=== PATIENT | male | born 1970 | race Two or more races ===

== ENCOUNTER 2024-05-25 04:41 | Emergency (ER) | payer OTHER ==
[~2024-05-25] VITALS: Ht 172.7 cm; Wt 105.0 kg
[2024-05-25 04:54] VITALS: BP 137/79; PULSE 66; RESP 16; TEMP 98.7; O2SAT 99
[2024-05-25 05:48] LABS: BASOPHILS % (AUTO) 0.7 % (0.0-2.0); EOSINOPHILS % (AUTO) 1.9 % (1.0-6.0); HEMATOCRIT 44.8 % (41-53); HEMOGLOBIN 15.6 g/dL (13.5-17.5); LYMPHOCYTES # (AUTO) 1.1 K/uL (1.0-4.8); LYMPHOCYTES % (AUTO) 14.4 % (22.0-44.0); MEAN CORPUSCULAR HGB CONC 34.7 G/dL (31.0-37.0); MEAN CORPUSCULAR VOLUME 92 fL (80-100); MONOCYTES % (AUTO) 13.5 % (2.0-9.0); NEUTROPHILS # (AUTO) 5.1 K/uL (1.8-7.7); NEUTROPHILS % (AUTO) 69.5 % (40.0-70.0); PLATELET COUNT (AUTO) 221 K/uL (150-450); RED BLOOD CELL COUNT(AUTO) 4.87 MIL/uL (4.50-5.90); RED CELL DISTRIBUTION WIDTH 12.6 % (11.5-14.5); WHITE BLOOD COUNT (AUTO) 7.4 K/uL (4.5-11.0)
[2024-05-25 05:54] LABS: COVID AG,FIA SOURCE NASAL SWAB
[2024-05-25 06:01] LABS: ANION GAP 2 mmol/L (8-16); CALCIUM, TOTAL 8.7 mg/dL (8.8-10.5); CARBON DIOXIDE 32 mmol/L (22-29); CHLORIDE 105 mmol/L (98-107); CREATININE 0.94 mg/dL (0.60-1.30); GLOMERULAR FILTR. RATE CALC > 60 mL/min (>60); GLUCOSE,RANDOM 100 mg/dL (70-110); POTASSIUM 4.8 mmol/L (3.5-5.1); SODIUM SERUM 139 mmol/L (136-145); UREA NITROGEN, BLOOD 20 mg/dL (7-18)
[2024-05-25 06:19] LABS: INFLUENZA TYPE A NEGATIVE FOR TYPE A (NEGATIVE); INFLUENZA TYPE B NEGATIVE FOR TYPE B (NEGATIVE); SARS-COV2 (COVID) ANTIGEN,FIA Negative (Negative)
[2024-05-25] MEDS ORDERED: BENZ-227 PO (06:50)
== END 2024-05-25 07:20 | disposition home or self-care (01) ==
LOC: EMS 04:46
DX: J20.8 Acute bronchitis due to other specified organisms (principal); B97.89 Other viral agents as the cause of diseases classified elsewhere; Z71.6 Tobacco abuse counseling; Z88.0 Allergy status to penicillin; Z91.148 Patient's other noncompliance with medication regimen for other reason; Z20.822 Contact with and (suspected) exposure to COVID-19
CPT/HCPCS: 71045; 80048; 85025; 87804; 99284; 36415-L1; 36415-TC

== ENCOUNTER 2024-09-10 17:10 | Emergency (ER) | payer OTHER ==
[~2024-09-10] VITALS: Ht 172.7 cm; Wt 96.8 kg
[~2024-09-10 17:10] MED LIST: BENZ-227 PO
[2024-09-10 17:18] VITALS: BP 132/81; PULSE 64; RESP 18; TEMP 98.1; O2SAT 99
[2024-09-10] MEDS ORDERED: PROP10DR4 OU (18:01)
[2024-09-10] MEDS ORDERED: TAMS0.4C94 PO (18:01)
[2024-09-10] MEDS ORDERED: CYCL30DR OU (18:01)
[2024-09-10] MEDS ORDERED: GABA-1181 PO (18:01)
[2024-09-10] MEDS ORDERED: LOSA-381 PO (18:01)
[2024-09-10] MEDS ORDERED: AMLO5TAB66 PO (18:01)
[2024-09-10] MEDS: PERTUSS(ACELL),DIPH,TET/PF 0.5 ML SYRINGE [ADULT] IM. ONE (18:36)
[2024-09-10] MEDS: IBUPROFEN 600 MG TABLET PO ONE (18:36)
[2024-09-10] MEDS ORDERED: CEPH-558 PO (18:44)
== END 2024-09-10 19:08 | disposition home or self-care (01) ==
LOC: EMS 17:10
DX: S61.432A Puncture wound without foreign body of left hand, initial encounter (principal); I10 Essential (primary) hypertension; Z23 Encounter for immunization; Z88.0 Allergy status to penicillin; W29.4XXA Contact with nail gun, initial encounter; Y93.89 Activity, other specified; Y92.89 Other specified places as the place of occurrence of the external cause; Y99.8 Other external cause status
CPT/HCPCS: 90471; 90715; 99283